=== PATIENT | female | born 2000 | race Caucasian/White ===

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

== ENCOUNTER 2020-03-16 12:00 | Outpatient (CLI) | payer MEDICAID ==
[2020-03-16 12:59] LABS: APPEARANCE,URINE CLOUDY; BILIRUBIN,URINE NEGATIVE (NEGATIVE); CALCIUM OXALATE CRYSTALS,URINE MANY /HPF; COLOR,URINE AMBER; GLUCOSE, URINE NEGATIVE (NEGATIVE); KETONES,URINE NEGATIVE (NEGATIVE); LEUKOCYTE ESTERASE,URINE NEGATIVE (NEGATIVE); NITRITE,URINE NEGATIVE (NEGATIVE); PROTEIN,URINE 30 mg/dL (NEGATIVE); URINE SPECIFIC GRAVITY 1.027; UROBILINOGEN,URINE NEGATIVE mg/dL (<2.0)
[2020-03-16 13:18] LABS: URINE AMPHETAMINES SCREEN NEGATIVE; URINE BARBITURATES SCREEN NEGATIVE; URINE BENZODIAZEPINES SCREEN NEGATIVE; URINE COCAINE SCREEN NEGATIVE; URINE MARIJUANA (THC) SCREEN NEGATIVE; URINE METHADONE SCREEN NEGATIVE; URINE PHENCYCLIDINE SCREEN NEGATIVE
--- NOTE | 2020-03-16 13:54 | Non Stress Test Report ---
Non Stress Test Datetime Report Generated by CPN: 03/16/2020 13:54 DEMOGRAPHIC EGA NST: 32.2 INDICATION Indication for Study (NST) Other: Fluid leaking MONITORING Monitor Explained: Monitor Explained; Test Explained; Patient Verbalized Understanding Time on Monitor: 03/16/2020 12:35 Time off Monitor: 03/16/2020 12:59 NST Duration: 24 NST INTERVENTIONS NST Interventions: PO Hydration; Reposition Patient Physician Notified NST: C Kirkland CNM BABY A: [id number] BABY A Movement : Present Contraction Frequency : 0 FHR Baseline : 135 Accelerations : 15X15 Decelerations : None Variability : Moderate 6-25bpm NST Review: Meets Criteria for Reactive NST NST Review and Verified By : Ewelina Camp RNC NST Results: Reactive NST REPORT Report Trigger: Send Report
== END 2020-03-16 13:37 | disposition home or self-care (01) ==
LOC: LC 12:00
PROVIDERS: ATTEND Obstetrics & Gynecology
DX: Z03.71 Encounter for suspected problem with amniotic cavity and membrane ruled out (principal); Z3A.32 32 weeks gestation of pregnancy; Z02.83 Encounter for blood-alcohol and blood-drug test
CPT/HCPCS: 59025; 80307; 81001; 84112

== ENCOUNTER 2020-04-30 19:47 | Outpatient (CLI) | payer MEDICAID ==
[2020-04-30 20:39] LABS: APPEARANCE,URINE SLIGHTLY-CLOUDY; BILIRUBIN,URINE NEGATIVE (NEGATIVE); COLOR,URINE YELLOW; GLUCOSE, URINE 50 mg/dL (NEGATIVE); KETONES,URINE NEGATIVE (NEGATIVE); LEUKOCYTE ESTERASE,URINE NEGATIVE (NEGATIVE); NITRITE,URINE NEGATIVE (NEGATIVE); PROTEIN,URINE 30 mg/dL (NEGATIVE); URINE SPECIFIC GRAVITY 1.029; UROBILINOGEN,URINE NEGATIVE mg/dL (<2.0)
[2020-04-30 20:53] LABS: URINE AMPHETAMINES SCREEN NEGATIVE; URINE BARBITURATES SCREEN NEGATIVE; URINE BENZODIAZEPINES SCREEN NEGATIVE; URINE COCAINE SCREEN NEGATIVE; URINE MARIJUANA (THC) SCREEN NEGATIVE; URINE METHADONE SCREEN NEGATIVE; URINE PHENCYCLIDINE SCREEN NEGATIVE
--- NOTE | 2020-04-30 21:06 | Non Stress Test Report ---
Non Stress Test Datetime Report Generated by CPN: 04/30/2020 21:06 DEMOGRAPHIC EGA NST: 38.5 INDICATION Indication for Study (NST) Other: lc/generalized aching MONITORING Monitor Explained: Monitor Explained; Test Explained; Patient Verbalized Understanding Time on Monitor: 04/30/2020 20:30 Time off Monitor: 04/30/2020 21:01 NST Duration: 31 NST INTERVENTIONS NST Interventions: PO Hydration; Reposition Patient Physician Notified NST: Dr Bailey BABY A: [id number] BABY A Movement : Present Contraction Frequency : 0 FHR Baseline : 145 Accelerations : 15X15 Decelerations : None Variability : Moderate 6-25bpm NST Review: Meets Criteria for Reactive NST NST Review and Verified By : Carolina Pretty RN NST Results: Reactive NST REPORT Report Trigger: Send Report
== END 2020-04-30 21:04 | disposition home or self-care (01) ==
LOC: LC 19:47
PROVIDERS: ATTEND Obstetrics & Gynecology
DX: O99.891 Other specified diseases and conditions complicating pregnancy (principal); M54.9 Dorsalgia, unspecified; Z3A.38 38 weeks gestation of pregnancy
CPT/HCPCS: 59025; 80307; 81001

== ENCOUNTER 2020-05-15 17:25 | Inpatient (IN) | payer MEDICAID ==
[2020-05-15] MEDS ORDERED: RINGERS SOLUTION,LACTATED 1,000 ML IV PRN (17:32)
[2020-05-15] MEDS ORDERED: ZOLPIDEM TARTRATE 5 MG TABLET PO PRN (17:32)
[2020-05-15] MEDS ORDERED: DINOPROSTONE 10 MG VAGINAL INSERT.SR PV ONE (17:32)
[2020-05-15] MEDS ORDERED: RINGERS SOLUTION,LACTATED 300 ML IV ONE (17:32)
[2020-05-15] MEDS ORDERED: MAG HYDROX/AL HYDROX/SIMETH SUSP 30 ML UDCUP PO PRN (17:32)
[2020-05-15] MEDS ORDERED: ACETAMINOPHEN 325 MG TABLET PO PRN (17:32)
[2020-05-15 17:58] LABS: APPEARANCE,URINE CLEAR; BILIRUBIN,URINE NEGATIVE (NEGATIVE); COLOR,URINE YELLOW; GLUCOSE, URINE NEGATIVE (NEGATIVE); KETONES,URINE NEGATIVE (NEGATIVE); LEUKOCYTE ESTERASE,URINE NEGATIVE (NEGATIVE); NITRITE,URINE NEGATIVE (NEGATIVE); PROTEIN,URINE NEGATIVE (NEGATIVE); URINE SPECIFIC GRAVITY 1.024; UROBILINOGEN,URINE NEGATIVE mg/dL (<2.0)
[2020-05-15] MEDS ORDERED: LIDOCAINE 1% INJ-PF (10 MG/ML) 30 ML SDV ONE (17:59)
[2020-05-15] MEDS ORDERED: OXYTOCIN 10 UNIT/ML VIAL ONE (17:59)
[2020-05-15] MEDS ORDERED: MISOPROSTOL 0.2 MG TABLET ONE (17:59)
[2020-05-15] MEDS ORDERED: DINOPROSTONE 10 MG VAGINAL INSERT.SR ONE (18:00)
[2020-05-15] MEDS ORDERED: ALBUTEROL SULFATE HFA (90 MCG/PUFF) 8 GM MDI IH SCH (18:00)
[2020-05-15] MEDS ORDERED: OXYTOCIN/0.9 % SODIUM CHLORIDE 30 UNIT/500 ML RTUINJ ONE (18:00)
[2020-05-15 18:17] LABS: URINE AMPHETAMINES SCREEN NEGATIVE; URINE BARBITURATES SCREEN NEGATIVE; URINE BENZODIAZEPINES SCREEN NEGATIVE; URINE COCAINE SCREEN NEGATIVE; URINE MARIJUANA (THC) SCREEN NEGATIVE; URINE METHADONE SCREEN NEGATIVE; URINE PHENCYCLIDINE SCREEN NEGATIVE
[2020-05-15 18:26] LABS: HEMATOCRIT 31.8 % (36.0-47.0); HEMOGLOBIN 10.5 g/dL (12.0-15.5); MEAN CORPUSCULAR HEMOGLOBIN 27.6 pg (27.0-33.4); MEAN CORPUSCULAR HGB CONC 33.1 g/dL (32.0-36.0); MEAN CORPUSCULAR VOLUME 83 fl (80-97); PLATELET COUNT 261 10^3/uL (150-450); RED BLOOD COUNT 3.82 10^6/uL (3.72-5.28); RED CELL DISTRIBUTION WIDTH 14.5 % (11.5-14.0); WHITE BLOOD COUNT 21.5 10^3/uL (4.0-10.5)
[2020-05-15 18:46] LABS: ABSOLUTE LYMPHOCYTES# (MANUAL) 2.8 10^3/uL (0.5-4.7); ABSOLUTE MONOCYTES # (MANUAL) 0.4 10^3/uL (0.1-1.4); BASOPHILS % (MANUAL) 0 % (0-2); EOSINOPHILS % (MANUAL) 0 % (0-6); LYMPHOCYTES % (MANUAL) 13 % (13-45); MONOCYTES % (MANUAL) 2 % (3-13); SEGMENTED NEUTROPHILS % (MAN) 85 % (42-78); TOTAL CELLS COUNTED 100
[2020-05-15 18:47] LABS: ANISOCYTOSIS SLIGHT; PLATELET COMMENT ADEQUATE
--- NOTE | 2020-05-15 19:00 | Warning Signs in Babies ---
VOD Warning Signs Datetime Report Generated by [facility]: 05/15/2020 19:00 VOD#[id number] -Warning Signs in Babies: Viewed with Parent(s)/Family (05/15/2020 18:59:Ric Aldana RN)
[2020-05-15] MEDS ORDERED: ZOLPIDEM TARTRATE 5 MG TABLET PO ONE (19:35)
[2020-05-15] MEDS ORDERED: HYDROXYZINE PAMOATE 50 MG CAPSULE PO ONE (19:36)
[2020-05-15] MEDS ORDERED: HYDROXYZINE PAMOATE 50 MG CAPSULE ONE (19:47)
[2020-05-15] MEDS ORDERED: ZOLPIDEM TARTRATE 5 MG TABLET ONE (19:47)
--- NOTE | 2020-05-16 07:02 | Admission Physical ---
Datetime Report Generated by CPN: 05/16/2020 07:01 CURRENT ADMISSION Chief Complaint: Scheduled Induction of Labor Indication for Induction: Post Dates Admit Impression : Term, Intrauterine ; No Active Labor; Intact Membranes; Induction of Labor Admit Plan: Admit to Unit; Initiate Labor Induction Protocol ALLERGIES Medication Allergies: No Medication Allergies: No Known Allergies (05/15/2020) Latex: No Latex Allergies Food Allergies: no Environmental Allergies: no OBSTETRICAL HISTORY EDC: 05/09/2020 00:00 : 1 Para: 0 Term: 0 : 0 SAB: 0 IAB: 0 Ectopic: 0 Livin Cesareans: 0 VBACs: 0 Multiple Births: 0 Gestational Diabetes: No Rh Sensitization: No Incompetent Cervix: No OTIS: No Infertility: No ART Treatment: No Uterine Anomaly: No IUGR: No Hx Previous C/S: No Macrosomia: No Hx Loss/Stillborn: No PIH: No Hx : No Placenta Previa/Abruption: No Depression/PP Depression: Yes PTL/PROM: No Post Hemorrhage: No Current Procedures: Ultrasound; NST Obstetrical History Comments: G1- Current, failed 1 hour Gtt passed 3 hour. SEE RECORDS Alcohol: No Marijuana : Yes Cocaine: No Other Illicit Drugs: No Cigarettes: Former Smoker. [id number] Cigarette Frequency: < 5 per day Advised to Stop: Yes MEDICAL HISTORY Diabetes: No Blood Transfusion: No Pulmonary Disease (Asthma, TB): Yes Breast Disease: No Hypertension: No [employer] Medic Surgery: No Heart Disease: No Hosp/Surgery: No Autoimmune Disorder: No Anesthetic Complications: No Kidney Disease: Yes Abnormal Pap Smear: No Neuro/Epilepsy: No Psychiatric Disorders: No Other Medical Diseases: No Hepatitis/Liver Disease: No Significant Family History: No Varicosities/Phlebitis: No Trauma/Violence : No Thyroid Dysfunction: No Medical History Comments: anemia/asthma/gerd, depression. Tonsillectomy and Adenoidectomy, Ear tubes, Vaginal repair from falling tree, UTI INFECTIOUS HISTORY Gonorrhea: No Genital Herpes: No Chlamydia: No Tuberculosis: No Syphilis: No Hepatitis: No HIV/AIDS Exposure: No Rash or Viral Illness: No HPV: No PHYSICAL EXAM General: Normal HEENT: Normal Neurologic: Normal Thyroid: Normal Heart: Normal Lungs: Normal Breast: Normal Back: Normal Abdomen: Normal Genitourinary Exam: Normal Extremities: Normal DTRs: Normal Pelvic Type: Adequate Vital Signs: Reviewed; Within Normal Limits VAGINAL EXAM Dilatation: 0 Effacement: 0 Station: -3 MEMBRANES Pooling: Negative Membranes: Intact FETUS A EGA: 41.0 Monitoring: External US FHR- Baseline: 150 Variability: Moderate 6-25bpm Accelerations: 15X15 Decelerations: None FHR Category: Category I Estimated Weight (gm): 3900 Presentation: Vertex PLANS FOR LABOR AND DELIVERY Labor and Delivery: None Pain Management: Medications; Epidural Feeding Preference: Breast Benefit of Breast Feed Discussed: Yes Circumcision: Yes INFORMED CONSENT Signature: with User ID: [email or web address]
[2020-05-16] MEDS ORDERED: INFLUENZA QUAD (6MOS+) 2020-21 VAC 0.5 ML SYR IM ONE (08:00)
[2020-05-16] MEDS ORDERED: NALBUPHINE HCL INJ 10 MG/1 ML AMPULE INJ ONE (09:10)
[2020-05-16] MEDS ORDERED: PROMETHAZINE HCL INJ 25 MG/1 ML VIAL IV ONE (09:10)
[2020-05-16] MEDS ORDERED: NALBUPHINE HCL INJ 10 MG/1 ML AMPULE ONE (09:28)
[2020-05-16] MEDS ORDERED: PROMETHAZINE HCL INJ 25 MG/1 ML VIAL ONE (09:28)
[2020-05-16] MEDS: OXYTOCIN/0.9 % SODIUM CHLORIDE 30 UNIT/500 ML RTUINJ IV PRN ×2 (10:40→19:36)
[2020-05-16] MEDS ORDERED: PENICILLIN G-K 5 MILLION UNIT VIAL ONE ×2 (12:05→20:39)
[2020-05-16] MEDS ORDERED: ROPIVACAINE HCL 0.2% INJ/PF (2 MG/ML) 20 ML SDV ONE ×2 (12:18→17:33)
[2020-05-16] MEDS ORDERED: FENTANYL/BUPIVACAINE/NS/PF 300 MCG/150 ML RTUINJ EPI ONE (12:18)
[2020-05-16] MEDS ORDERED: EPHEDRINE SULFATE INJ 50 MG/1 ML AMPULE ONE (12:18)
--- NOTE | 2020-05-16 15:57 | L&D Progress Notes ---
PROGRESS NOTES Datetime Report Generated by CPN: 05/16/2020 15:57 PROGRESS NOTE Comment: Pitocin off due to isolated late, difficult to see uc's, moderate variability, + accels, will leave off and restart in 30 minutes Monitor closely, irreg uc's, confortable with with epidural, BP down, giving ephedrine VAGINAL EXAM Dilatation: 0 Effacement: 0 Station: -3 LAST VAGINAL EXAM-NURSING Nursing Exam Dilitation: 2.0 Nursing Exam Effacement: 70 Nursing Exam Station: -2 Nursing Exam Contractions: unable to determine contractions, with patient on the side with peanut ball MEMBRANES Pooling: Negative Membranes: Intact FETUS A : 41.0 Estimated Weight (gm): 3900 Presentation: Vertex SIGNATURE SIGNATURE: [id number];[id number];[id number];[id number] Assignment: Shantel Olvera MD Signature: with User ID: [email or web address] : with User ID: [email or web address]
[2020-05-16] MEDS ORDERED: PENICILLIN G-K 5 MILLION UNIT VIAL IV SCH (16:30)
[2020-05-16] MEDS ORDERED: PENICILLIN G POTASSIUM 2,500,000 UNIT in DEXTROSE 5%-WATER 50 ML IV ONE (17:00)
[2020-05-16] MEDS ORDERED: OXYTOCIN/0.9 % SODIUM CHLORIDE 30 UNIT/500 ML RTUINJ IV PRN ×2 (20:24→23:32)
[2020-05-16] MEDS ORDERED: ACETAMINOPHEN WITH CODEINE #3 TABLET PO PRN ×2 (23:32)
[2020-05-16] MEDS ORDERED: DIPHENHYDRAMINE HCL 25 MG CAPSULE PO PRN (23:32)
[2020-05-16] MEDS ORDERED: MAG HYDROX/AL HYDROX/SIMETH SUSP 30 ML UDCUP PO PRN (23:32)
[2020-05-16] MEDS ORDERED: ACETAMINOPHEN 650 MG SUPP.RECT PR PRN (23:32)
[2020-05-16] MEDS ORDERED: DIPH/PERTUSS(ACELL)/TETANUS VAC/PF 0.5 ML SYR (>=10YO) IM PRN (23:32)
[2020-05-16] MEDS ORDERED: BENZOCAINE/MENTHOL AEROSOL SPRAY 56 ML TOP PRN (23:32)
[2020-05-16] MEDS ORDERED: PSEUDOEPHEDRINE HCL 30 MG TABLET PO PRN (23:32)
[2020-05-16] MEDS ORDERED: FAMOTIDINE 20 MG TABLET PO PRN (23:32)
[2020-05-16] MEDS ORDERED: VARICELLA VACC/PF (1350 UNIT/0.5 ML) 0.5 ML VIAL SUBCUT PRN (23:32)
[2020-05-16] MEDS ORDERED: GLYCERIN/WITCH HAZEL LEAF 1 EACH MED..WIPE TP PRN (23:32)
[2020-05-16] MEDS ORDERED: ACETAMINOPHEN 325 MG TABLET PO PRN (23:32)
[2020-05-16] MEDS ORDERED: DIBUCAINE 1% OINTMENT 28 GM TP PRN (23:32)
[2020-05-16] MEDS ORDERED: MAGNESIUM HYDROXIDE SUSP 30 ML UDCUP PO PRN (23:32)
[2020-05-16] MEDS ORDERED: MEASLES,MUMPS&RUBELLA VACC/PF 0.5 ML VIAL SUBCUT PRN (23:32)
[2020-05-16] MEDS ORDERED: ZOLPIDEM TARTRATE 5 MG TABLET PO PRN (23:32)
[2020-05-16] MEDS ORDERED: ALBUTEROL SULFATE HFA (90 MCG/PUFF) 8 GM MDI (1 MDI/ER DISP) IH PRN ×2 (23:34→23:56)
[2020-05-16] MEDS ORDERED: IBUPROFEN 800 MG TABLET PO ONE (23:45)
[2020-05-17] MEDS ORDERED: ALBUTEROL SULFATE HFA (90 MCG/PUFF) 8 GM MDI IH SCH
--- NOTE | 2020-05-17 00:04 | Delivery Summary ---
Del Sum A-C Datetime Report Generated by CPN: 05/17/2020 00:04 DELIVERY PERSONNEL DELIVERY PERSONNEL: [id number] Delivery Doctor:: Shantel Olvera MD Labor and Delivery Nurse:: Chrystal Elena RNsteam tunnel feeder Nurse:: Rosetta Kasper RN Nursery Nurse:: Rhonda Segovia RN Nursery Nurse:: Shalini Casanova RN Launch Operator/INPATIENT SERVICES DIRECTOR: Mary Carlos, ST MATERNAL INFORMATION Delivery Anesthesia: Epidural Medications After Delivery: Pitocin Bolus-Please Comment; Pitocin 30 Units in 500ml NS/D5W Delivery QBL: 200 Maternal Complications: Other Complication Details: deep variables Provider Comments: Called to patients room as she was complete and +2 station. Pushed through a few contractions and delivered a viable male in MARIE presentation. After delivery of the head, the shoulders and rest of the body delivered easily. Cord clamping delayed 30 seconds as infant is vigorous. After cord clamped and cut, placed on Mothers chest. After cord doubly clamped and cut, to warmer with nursery staff to warmer. Placenta spontaneous and atony noted. Cytotec OK given. FUndus firm. Repair labial lacerations as above. LABOR SUMMARY EDC: 05/09/2020 00:00 No. Babies in Womb: 1 Attempted: No Labor Anesthesia: Epidural LABOR INFORMATION Reason for Induction: Post Dates Onset of Labor: 05/16/2020 18:44 Complete Dilatation: 05/16/2020 22:33 Cervical Ripening Agents: Cervidil Oxytocin: Induction Group B Beta Strep: positive Antibiotics # of Doses: 3 Antibiotics Time of Last Dose: 05/16/2020 20:53 Name of Antibiotic Given: Penicillin Steroids Given: None Reason Steroids Not Administered: Not Applicable MEMBRANES Membranes Rupture Method: Artificial Rupture of Membranes: 05/16/2020 16:41 Length of Rupture (hr): 6.20 Amniotic Fluid Color: Clear Amniotic Fluid Amount: Moderate Amniotic Fluid Odor: Normal STAGES OF LABOR Stage 1 hr: 3 Stage 1 min: 49 Stage 2 hr: 0 Stage 2 min: 20 Stage 3 hr: 0 Stage 3 min: 5 Total Time in Labor hr: 4 Total Time in Labor min: 14 VAGINAL DELIVERY Other Laceration: Bilateral labial lacerations: first degree Laceration Repair: Yes Laceration Repair Note: 3-0 chromic in running fashion Sponge Count Correct: Yes Sharps Count Correct: Yes CSECTION DELIVERY Primary Indication: N/A Secondary Indication: N/A CSection Incidence: N/A Labor: N/A Elective: N/A CSection Incision: N/A BABY A INFORMATION Delivery Date/Time: 05/16/2020 22:53 Method of Delivery: Vaginal Nurse Controlled Delivery: No Born in Route : No : N/A Forceps: N/A Vacuum Extraction: N/A Shoulder Dystocia : No PRESENTATION/POSITION BABY A Presentation: Cephalic Cephalic Presentation: Vertex Vertex Position: Right Occipital Anterior Breech Presentation: N/A PLACENTA INFORMATION BABY A Placenta Delivery Time : 05/16/2020 22:58 Placenta Method of Delivery: Spontaneous Placenta Status: Delivered SCORES BABY A Heart Rate 1 min: >100 bpm Resp Effort 1 min: Good Cry Reflex Irritability 1 min: Cough or Sneeze or Pulls Away Muscle Tone 1 min: Flaccid Color 1 min: Blue/Pale Resuscitation Effort 1 min: Tactile Stimulation SCORE 1 MIN: 6 Heart Rate 5 min: >100 bpm Resp Effort 5 min: Good Cry Reflex Irritability 5 min: Cough or Sneeze or Pulls Away Muscle Tone 5 min: Active Motion Color 5 min: Body [place], Extremities Blue Resuscitation Effort 5 min: Tactile Stimulation; Oxygen; PPV/NCPAP SCORE 5 MIN: 9 INFANT INFORMATION BABY A Gestational Age at Delivery: 41.0 Gestational Status: Late Term- 41- 41.6 Weeks Outcome : Liveborn Infant Condition : Stable Infant Sex: Male IDENTIFICATION BABY A Verification Date/Time: 05/16/2020 23:07 ID Band Number: [id number] Mother's Name Verified: Yes Infant RN Verifying : K Ranjith, RN Additional Verifying Personnel: T Jovan, RNC WEIGHT/LENGTH BABY A Birthweight (gm): 3800 Weight (lb): 8 Infant Weight (oz): 6 Infant Length (in): 20.50 Infant Length (cm): 52.07 CORD INFORMATION BABY A No. Cord Vessels: 3 Nuchal Cord : N/A Cord Blood Taken: Yes-For Eval (Mom's Blood Type - or O+) Suction: Mouth; Nose ASSESSMENT BABY A Complications: None Physical Findings at Delivery: Within Normal Limits Infant Respirations: Appears Normal Skin to Skin: Yes Skin to Skin Time (min): 60 Transferred To: Remains with Mother BABY B INFORMATION : N/A SIGNATURES Signature: with User ID: [email or web address], Addendum/Amendment: EBL: 250 cc : with User ID: [email or web address] Addendum/Amendment: EBL: 250 cc
--- NOTE | 2020-05-17 00:04 | Birth Certificate Data ---
Cert Data Datetime Report Generated by CPN: 05/17/2020 00:04 CERTIFICATE DATA Delivery Provider: Shantel Olvera MD (03/16/2020 12:03:Rosetta Kasper RN) 47a. Care: Yes (03/16/2020 12:03:BANDAR Levi) 47b. Date of First Visit: 09/07/2019 00:00 (03/16/2020 12:03:Ric Aldana RN) 47c. Date of Last Visit: 05/10/2020 00:00 (03/16/2020 12:03:Ric Aldana RN) 47d. Number of Visits: 16 (03/16/2020 12:03:Ric Aldana RN) 48a. Number of Prev Live Births: 0 (03/16/2020 12:03:Ric Aldana RN) 48b. Now Livin (03/16/2020 12:03:Valeri Fernandez RN) 48c. Live Births Now : 0 (03/16/2020 12:03:QS system process) 48e. Losses: 0 (03/16/2020 12:03:Ric Aldana, RN) RISK FACTORS IN THIS 49a. Diabetes: No (03/16/2020 12:03:Nichelle Hernandez RNC) 49b. Hypertension: No (03/16/2020 12:03:Nichelle Hernandez RNC) 49c. Previous Births: 0 (03/16/2020 12:03:Valeri Frenandez RN) 49d. Stillborns: No (03/16/2020 12:03:Nichelle Hernandez RNC) 49d. IUGR: No (03/16/2020 12:03:Nichelle Hernandez RNC) 49e. Infertility Treatment: No (03/16/2020 12:03:Nichelle Hernandez RNC) 49f. Previous Cesareans: 0 (03/16/2020 12:03:Ric Aldana RN) Mother's Height 50b. Height Inches: 65 (03/16/2020 12:28:QS system process) Mother's Weight 51a. Pre- Weight (lbs): 248 (03/16/2020 12:03:BANDAR Levi) 51b. Weight at Delivery (lbs): 268 (05/16/2020 12:48:QS system process) 52. Dt Last Normal Menses Began: 05/09/2020 00:00 (03/16/2020 12:03:Stephenie Colvin RN) Infections Present/Treated 53a. Gonorrhea: No (03/16/2020 12:03:BANDAR Levi) Results this Hospital Visit : Negative (03/16/2020 12:03:BANDAR Levi) 53b. Syphilis: No (03/16/2020 12:03:BANDAR Levi) Results this Hospital Visit: NONREACTIVE (05/15/2020 17:53:QS system process) 53c. Chlamydia: No (03/16/2020 12:03:BANDAR Levi) Results this Hospital Visit: Negative (03/16/2020 12:03:BANDAR Levi) 53d. Hepatitis B: No (03/16/2020 12:03:BANDAR Levi) Results this Hospital Visit: Negative (03/16/2020 12:03:BANDAR Levi) 53e. Hepatitis C: Negative (03/16/2020 12:03:Ric Aldana RN) 53h. Mother Tested for HBsAG: Yes (03/16/2020 12:03:Ric Aldana RN) 53i. Date Tested: 10/28/2019 00:00 (03/16/2020 12:03:Ric Aldana RN) 53j. Test Result: Negative (03/16/2020 12:03:BANDAR Levi) Obstetric Procedures 54a, b, c. Obstetric Procedures: Ultrasound; NST (03/16/2020 12:03:Ric Aldana RN) Cigarette Smoking Cigarette Smoking: Former Smoker. [id number] (03/16/2020 12:03:BANDAR Levi) 55a. 3 Months Before Preg - Ci (03/16/2020 12:03:BANDAR Levi) 55a. Packs: 0 (03/16/2020 12:03:Rosetta Kasper RN) 55b. 1st Trimester of Preg- Ci (03/16/2020 12:03:BANDAR Levi) 55b. Packs: 0 (03/16/2020 12:03:Rosetta Kasper RN) 55c. 2nd Trimester of Preg- Ci (03/16/2020 12:03:BANDAR Levi) 55c. Packs: 0 (03/16/2020 12:03:Rosetta Ksaper RN) 55d. 3rd Trimester of Preg- Ci (03/16/2020 12:03:BANDAR Levi) 55d. Packs: 0 (03/16/2020 12:03:Rosetta Kasper RN) Onset of Labor 56a. PROM >12 Hrs: 6.20 (03/16/2020 12:03:QS system process) 56b. Precipitous Labor <3 Hrs: 4 (03/16/2020 12:03:QS system process) 56c. Prolonged Labor > 20 Hrs: 4 (03/16/2020 12:03:QS system process) 57a. Induction of Labor: Induction (03/16/2020 12:03:Rosetta Kasper RN) 57a. Induction of Labor: Cervidil (05/15/2020 18:25:Serina Miller RN) 57c. Non-Vertex Presentation A: Vertex (03/16/2020 12:03:Rosetta Kapser RN) 57d. Steroids - Lung Mat: None (03/16/2020 12:03:Ric Aldana RN) 57d. Steroids - Lung Mat: Not Applicable (03/16/2020 12:03:Ric Aldana RN) 57e. Antibiotics During Labor: 05/16/2020 20:53 (03/16/2020 12:03:Rosetta Kasper RN) 57f. Mat [place] or Temp >100.4: 99.4 (03/16/2020 12:03:Rosetta Kasper RN) 57g. Moderate/Heavy Meconium: Clear (05/16/2020 16:41:Nikki Escalante RN) 57h. Intolerance of Labor: N/A (03/16/2020 12:03:Ric Aldana RN) : N/A (03/16/2020 12:03:Ric Aldana RN) 57i. Epidural/Spinal Anesthesia: Epidural (03/16/2020 12:03:Ric Aldana RN) Method of Delivery 58a. Forceps - Unsuccessful A: N/A (03/16/2020 12:03:Ric Aldana RN) 58b. Vacuum - Unsuccessful A: N/A (03/16/2020 12:03:Rosetta Kasper RN) 58c. Presentation at 58c. Presentation at - A : Vertex (03/16/2020 12:03:Rosetta Kasper RN) 58c. Presentation at - A : N/A (03/16/2020 12:03:Rosetta Kasper RN) 58c. Presentation at - A : Cephalic (03/16/2020 12:03:Rosetta Kasper RN) Final Route and Method of Del 58d. Baby A Route/Delivery: Vaginal (05/16/2020 22:53:Rosetta Kasper RN) 58e. Trial of Labor Attempted: No (03/16/2020 12:03:Ric Aldana RN) 58e. Trial of Labor Attempted A: N/A (03/16/2020 12:03:Ric Jovan, RN) 58e. Trial of Labor Attempted B: N/A (03/16/2020 12:03:Ric Aldana, RN) Maternal Morbidity 59b. 3rd or 4th Degree Lacs: Bilateral labial lacerations: first degree (03/16/2020 12:03:Shantel Olvera, MD) Birthweight Baby A: 3800 (03/16/2020 12:03:Rosetta Kasper RN) 60a. Pounds : 8 (03/16/2020 12:03:QS system process) 60b. Ounces: 6 (03/16/2020 12:03:QS system process) 61. GA at Delivery Baby A: 41.0 (03/16/2020 12:03:Ric Aldana RN) : Late Term- 41- 41.6 Weeks (03/16/2020 12:03:QS system process) 62a. 5 Minute Baby A: 9 (03/16/2020 12:03:QS system process)
[2020-05-17] MEDS ORDERED: IBUPROFEN 800 MG TABLET ONE (01:19)
[2020-05-17] MEDS ORDERED: IBUPROFEN 800 MG TABLET PO SCH (06:00)
[2020-05-17 07:27] LABS: HEMATOCRIT 24.8 % (36.0-47.0); MEAN CORPUSCULAR HEMOGLOBIN 27.8 pg (27.0-33.4); MEAN CORPUSCULAR HGB CONC 33.9 g/dL (32.0-36.0); MEAN CORPUSCULAR VOLUME 82 fl (80-97); PLATELET COUNT 220 10^3/uL (150-450); RED BLOOD COUNT 3.02 10^6/uL (3.72-5.28); RED CELL DISTRIBUTION WIDTH 14.6 % (11.5-14.0); WHITE BLOOD COUNT 24.1 10^3/uL (4.0-10.5)
[2020-05-17] MEDS ORDERED: ALBUTEROL SULFATE HFA (90 MCG/PUFF) 8 GM MDI IH PRN (07:39)
[2020-05-17 07:57] LABS: HEMOGLOBIN 8.4 g/dL (12.0-15.5)
[2020-05-17] MEDS: PRENATAL VITAMIN W DHA CAPSULE PO SCH (10:58)
[2020-05-17] MEDS: DOCUSATE SODIUM 100 MG CAPSULE PO SCH ×2 (10:59→18:30)
[2020-05-17] MEDS: SENNOSIDES/DOCUSATE 8.6-50 MG 1 EACH TABLET PO SCH (10:59)
[2020-05-17] MEDS: FERROUS SULFATE 325 MG TABLET PO SCH ×2 (10:59→18:30)
[2020-05-17] MEDS: IBUPROFEN 800 MG TABLET PO SCH ×2 (11:01→18:30)
--- NOTE | 2020-05-17 11:36 | PDOC PROGRESS REPORT ---
Subjective-OB Progress Note for:: 05/17/20 - PP Day #1, doing well, no complaints, O+, Rubella Immune, . Will give IV iron today due to anemia Physical Exam (OB) Vital Signs: Temp Pulse Resp BP Pulse Ox 97.8 F 103 H 18 101/59 L 100 05/17/20 10:00 05/17/20 07:53 05/17/20 07:53 05/17/20 07:53 05/17/20 07:53 Intake & Output 05/16/20 05/17/20 05/18/20 06:59 06:59 06:59 Intake Total 700 400 Output Total 400 Balance 300 400 Weight 121.8 kg - General General Appearance: Appears well, Alert In distress: None - PIH/Pre-Eclampsia Headache: Absent Epigastric Pain: No Visual Changes: No - Maternal Morbidity 59. Maternal Morbidity (serious complications experinced by the mother associated with labor and delivery: None of the above - Lochia Lochia Amount: Small 10-25 ml Lochia Color: Rubra/Red - Abdomen Description: Soft Hernia Present: Yes Fundal Description: Firm, Midline Fundal Height: u/u - u/2 - Respiratory Respiratory Status: No respiratory distress - Abdominal Distension: No distension Tenderness: Nontender - Genitourinary Genitourinary Note: voiding - Extremities Upper extremity: Normal inspection Lower extremities: Normal inspection - Neurological Cognition: Normal Orientation: AAOx4 - Psychological Associated symptoms: Normal affect, Normal mood - Skin Skin Temperature: Warm Skin Moisture: Dry Objective-Diagnostic Laboratory: 05/17/20 07:08 05/17/20 07:08 WBC 24.1 H RBC 3.02 L Hgb 8.4 L D Hct 24.8 L MCV 82 MCH 27.8 MCHC 33.9 RDW 14.6 H Plt Count 220 Assessment and Plan(PN) - Assessment and Plan (1) (normal spontaneous vaginal delivery) Is this a current diagnosis for this admission?: Yes (2) Anemia affecting in third trimester Is this a current diagnosis for this admission?: Yes Plan:: Ambulation encouraged. IV iron, Routine PP orders - Time Spent with Patient Time with patient: Less than 15 minutes Medications reviewed and adjusted accordingly: Yes - Disposition Anticipated Discharge Disposition: Home, Self Care Anticipated Discharge Timeframe: within 24 hours
[2020-05-17] MEDS: IRON SUCROSE COMPLEX INJ/PF 100 MG/5 ML SDV IV ONE ×2 (12:51→13:09)
[2020-05-17] MEDS ORDERED: PENICILLIN G POTASSIUM 2,500,000 UNIT in DEXTROSE 5%-WATER 50 ML IV SCH (21:00)
[2020-05-18] MEDS: IBUPROFEN 800 MG TABLET PO SCH ×2 (01:07→10:06)
[2020-05-18] MEDS ORDERED: INFLUENZA QUAD (6MOS+) 2020-21 VAC 0.5 ML SYR IM ONE (08:00)
--- NOTE | 2020-05-18 09:48 | PDOC DISCHARGE SUMMARY ---
Impression - Admit/DC Date/PCP Admission Date/Primary Care Provider: 05/15/20 17:25 SONNY RIZVI MD Discharge Date: 05/18/20 - Discharge Diagnosis (1) Laceration, obstetrical, first degree Is this a current diagnosis for this admission?: Yes (2) Anemia affecting in third trimester Is this a current diagnosis for this admission?: Yes (3) (normal spontaneous vaginal delivery) Is this a current diagnosis for this admission?: Yes - Additional Information Resuscitation Status: Full Code Discharge Diet: Regular Discharge Activity: Balance Activity w/Rest Referrals: SONNY RIZVI MD [Primary Care Provider] - Prescriptions: Ibuprofen [Motrin 800 mg Tablet] 800 mg PO Q8HP PRN #60 tablet PRN Reason: Home Medications: Albuterol Sulfate [Proair HFA Inhalation Aerosol 8.5 gm MDI] 2 puff IH Q4H PRN #1 mdi 07/09/19 Vit,Calc76/Iron/Folic [Prenatabs Rx Tablet] 1 tab PO DAILY 04/30/20 Ibuprofen [Motrin 800 mg Tablet] 800 mg PO Q8HP PRN #60 tablet 05/18/20 HPI Gestational Age: 41.0 Reason(s) for Admission: Induction of Labor Procedures: NST Intrapartum Procedure(s): Spontaneous Vaginal Delivery Complication(s): Laceration-Labial Laceration-Degree: 1st Hospital Course 59. Maternal Morbidity (serious complications experinced by the mother associated with labor and delivery: None of the above Results Laboratory Results: WBC 24.1 10^3/uL (4.0-10.5) H 05/17/20 07:08 RBC 3.02 10^6/uL (3.72-5.28) L 05/17/20 07:08 Hgb 8.4 g/dL (12.0-15.5) L D 05/17/20 07:08 Hct 24.8 % (36.0-47.0) L 05/17/20 07:08 MCV 82 fl (80-97) 05/17/20 07:08 MCH 27.8 pg (27.0-33.4) 05/17/20 07:08 MCHC 33.9 g/dL (32.0-36.0) 05/17/20 07:08 RDW 14.6 % (11.5-14.0) H 05/17/20 07:08 Plt Count 220 10^3/uL (150-450) 05/17/20 07:08 Lymph % (Auto) Not Reportable 05/15/20 17:53 Charles % (Auto) Not Reportable 05/15/20 17:53 Eos % (Auto) Not Reportable 05/15/20 17:53 Baso % (Auto) Not Reportable 05/15/20 17:53 Absolute Neuts (auto) Not Reportable 05/15/20 17:53 Absolute Lymphs (auto) Not Reportable 05/15/20 17:53 Absolute Monos (auto) Not Reportable 05/15/20 17:53 Absolute Eos (auto) Not Reportable 05/15/20 17:53 Absolute Basos (auto) Not Reportable 05/15/20 17:53 Total Counted 100 05/15/20 17:53 Seg Neutrophils % Not Reportable 05/15/20 17:53 Seg Neuts % (Manual) 85 % (42-78) H 05/15/20 17:53 Lymphocytes % (Manual) 13 % (13-45) 05/15/20 17:53 Monocytes % (Manual) 2 % (3-13) L 05/15/20 17:53 Eosinophils % (Manual) 0 % (0-6) 05/15/20 17:53 Basophils % (Manual) 0 % (0-2) 05/15/20 17:53 Abs Neuts (Manual) 18.3 10^3/uL (1.7-8.2) H 05/15/20 17:53 Abs Lymphs (Manual) 2.8 10^3/uL (0.5-4.7) 05/15/20 17:53 Abs Monocytes (Manual) 0.4 10^3/uL (0.1-1.4) 05/15/20 17:53 Absolute Eos (Manual) 0.0 10^3/uL (0.0-0.6) 05/15/20 17:53 Abs Basophils (Manual) 0.0 10^3/uL (0.0-0.2) 05/15/20 17:53 Platelet Comment ADEQUATE 05/15/20 17:53 Anisocytosis SLIGHT 05/15/20 17:53 Urine Color YELLOW 05/15/20 17:36 Urine Appearance CLEAR 05/15/20 17:36 Urine pH 6.0 (5.0-9.0) 05/15/20 17:36 Ur Specific [place] 1.024 05/15/20 17:36 Urine Protein NEGATIVE mg/dL (NEGATIVE) 05/15/20 17:36 Urine Glucose (UA) NEGATIVE mg/dL (NEGATIVE) 05/15/20 17:36 Urine Ketones NEGATIVE mg/dL (NEGATIVE) 05/15/20 17:36 Urine Blood NEGATIVE (NEGATIVE) 05/15/20 17:36 Urine Nitrite NEGATIVE (NEGATIVE) 05/15/20 17:36 Urine Bilirubin NEGATIVE (NEGATIVE) 05/15/20 17:36 Urine Urobilinogen NEGATIVE mg/dL (<2.0) 05/15/20 17:36 Ur Leukocyte Esterase NEGATIVE (NEGATIVE) 05/15/20 17:36 Urine Ascorbic Acid NEGATIVE (NEGATIVE) 05/15/20 17:36 Urine Opiates Screen NEGATIVE 05/15/20 17:36 Urine Methadone Screen NEGATIVE 05/15/20 17:36 Ur Barbiturates Screen NEGATIVE 05/15/20 17:36 Ur Phencyclidine Scrn NEGATIVE 05/15/20 17:36 Ur Amphetamines Screen NEGATIVE 05/15/20 17:36 U Benzodiazepines Scrn NEGATIVE 05/15/20 17:36 Urine Cocaine Screen NEGATIVE 05/15/20 17:36 U Marijuana (THC) Screen NEGATIVE 05/15/20 17:36 RPR NONREACTIVE (NONREACTIVE) 05/15/20 17:53 Blood Type O POSITIVE 05/15/20 17:53 Antibody Screen NEGATIVE 05/15/20 17:53 Plan Plan of Treatment: f/u at [facility] 4 wks Time Spent: Less than 30 Minutes
[2020-05-18] MEDS: SENNOSIDES/DOCUSATE 8.6-50 MG 1 EACH TABLET PO SCH (10:05)
[2020-05-18] MEDS: DOCUSATE SODIUM 100 MG CAPSULE PO SCH (10:05)
[2020-05-18] MEDS: FERROUS SULFATE 325 MG TABLET PO SCH (10:05)
[2020-05-18 10:50] LABS: ABSOLUTE BASOPHILS # (AUTO) 0.1 10^3/uL (0.0-0.2); ABSOLUTE EOSINOPHILS # (AUTO) 0.3 10^3/uL (0.0-0.6); ABSOLUTE LYMPHOCYTES (AUTO) 2.7 10^3/uL (0.5-4.7); ABSOLUTE NEUT (AUTO) 12.2 10^3/uL (1.7-8.2); BASOPHILS % (AUTO) 0.4 % (0-2); EOSINOPHILS % (AUTO) 1.6 % (0-6); HEMATOCRIT 24.3 % (36.0-47.0); HEMOGLOBIN 8.2 g/dL (12.0-15.5); LYMPHOCYTES % (AUTO) 16.6 % (13-45); MEAN CORPUSCULAR HEMOGLOBIN 27.7 pg (27.0-33.4); MEAN CORPUSCULAR HGB CONC 33.7 g/dL (32.0-36.0); MEAN CORPUSCULAR VOLUME 82 fl (80-97); MONOCYTES % (AUTO) 6.3 % (3-13); PLATELET COUNT 232 10^3/uL (150-450); RED BLOOD COUNT 2.96 10^6/uL (3.72-5.28); RED CELL DISTRIBUTION WIDTH 14.8 % (11.5-14.0); SEGMENTED NEUTROPHILS % (AUTO) 75.1 % (42-78); TOTAL CELLS COUNTED % (AUTO) 100 %; WHITE BLOOD COUNT 16.3 10^3/uL (4.0-10.5)
[2020-05-18] MEDS: PRENATAL VITAMIN W DHA CAPSULE PO SCH (13:10)
[2020-05-18 15:58] VITALS: BP 130/75
== END 2020-05-18 16:53 | disposition home or self-care (01) | DRG 807 ==
LOC: LR 17:25 → 2S 05-17 01:26
PROVIDERS: ADMIT Obstetrics & Gynecology; ATTEND Obstetrics & Gynecology
PROC: 10E0XZZ Delivery of Products of Conception, External Approach (ICD-10-PCS; principal; 2020-05-16)
PROC: 0UQMXZZ Repair Vulva, External Approach (ICD-10-PCS; 2020-05-16)
PROC: 3E033VJ Introduction of Other Hormone into Peripheral Vein, Percutaneous Approach (ICD-10-PCS; 2020-05-16)
PROC: 10907ZC Drainage of Amniotic Fluid, Therapeutic from Products of Conception, Via Natural or Artificial Opening (ICD-10-PCS; 2020-05-16)
PROC: 3E0234Z Introduction of Serum, Toxoid and Vaccine into Muscle, Percutaneous Approach (ICD-10-PCS; 2020-05-18)
DX: O48.0 Post-term pregnancy (principal); Z37.0 Single live birth; O99.02 Anemia complicating childbirth; D64.9 Anemia, unspecified; Z20.822 Contact with and (suspected) exposure to COVID-19; O70.0 First degree perineal laceration during delivery; O99.214 Obesity complicating childbirth; E66.9 Obesity, unspecified; O99.824 Streptococcus B carrier state complicating childbirth; Z23 Encounter for immunization; Z28.21 Immunization not carried out because of patient refusal; Z3A.41 41 weeks gestation of pregnancy; Z87.891 Personal history of nicotine dependence
CPT/HCPCS: 1967; 36415; 80307; 81005; 85025; 85027; 86592; 86850; 86900; 86901; 90686; 90715; 94760; J1756; J2300; J2540; J2550; J2590; J2795; J3010; J3490; J7060